=== PATIENT | male | born 1950 | race Caucasian/White ===

== ENCOUNTER → 2018-03-03 | Outpatient (CLI) | payer MEDICARE ==
[~2018-03-03] MED LIST: ISOVUE-370 76% 100ML VIAL (Q9967) As Ordered
== END ==
LOC: M RAD 08:22
DX: R91.1 Solitary pulmonary nodule (principal)
CPT/HCPCS: Q9967

== ENCOUNTER 2018-03-26 06:01 | Day surgery (SDC) | payer MEDICARE ==
[2018-03-26] MEDS: LR 1,000 ML IV ×2 (06:51)
[2018-03-26] MEDS ORDERED: LIDOCAINE 2% INJ 100 MG/5 ML SDV (FOR ANES.) As Ordered ×2 (07:10)
[2018-03-26] MEDS ORDERED: SUCCINYLCHOLINE 100 MG/5 ML SYRINGE (J0330) As Ordered ×2 (07:10)
[2018-03-26] MEDS: EPINEPHrine 1MG/10ML SYRINGE 1.5IN As Ordered ×2 (07:10)
[2018-03-26] MEDS: LIDOCAINE 1% SDV INJ 30 ML VIAL As Ordered ×2 (07:10)
[2018-03-26] MEDS ORDERED: PROPOFOL 200 MG/20 ML VIAL As Ordered ×2 (07:10)
[2018-03-26] MEDS: LIDOCAINE VISCOUS 2% SOLN 15ML UDC As Ordered ×2 (07:10)
[2018-03-26] MEDS: THROMBIN SOLN 20,000 UNITS KIT As Ordered ×2 (07:10)
[2018-03-26] MEDS ORDERED: fentaNYL 100 MCG/2 ML INJECTION (J3010) As Ordered ×2 (07:11)
[2018-03-26] MEDS ORDERED: MIDAZOLAM INJ 2 MG/2 ML VIAL (J2250) As Ordered ×2 (07:11)
[2018-03-26] MEDS: CETACAINE SPRAY 5GM As Ordered ×2 (07:46)
[2018-03-26] MEDS ORDERED: PHENYLephrine HCL 500 MCG/5 ML (100MCG/ML) SYRINGE (J2370) As Ordered ×2 (07:49)
[2018-03-26] MEDS ORDERED: ROCURONIUM BROMIDE 50 MG/5 ML VIAL As Ordered ×2 (07:50)
[2018-03-26] MEDS ORDERED: ONDANSETRON 4MG/2ML VIAL (J2405) As Ordered ×2 (08:09)
[2018-03-26] MEDS ORDERED: LR 1,000 ML IV ×2 (08:45)
[2018-03-26] MEDS ORDERED: ONDANSETRON 4MG/2ML VIAL (J2405) IV ×2 (08:45)
[2018-03-26] MEDS ORDERED: PERCOCET 5MG/325MG TAB PO ×2 (08:45)
[2018-03-26] MEDS ORDERED: fentaNYL 100 MCG/2 ML INJECTION (J3010) IV ×2 (08:45)
== END 2018-03-26 09:45 | disposition home or self-care (01) ==
LOC: M SDC 06:01
DX: R91.1 Solitary pulmonary nodule (principal); N40.0 Benign prostatic hyperplasia without lower urinary tract symptoms; R06.00 Dyspnea, unspecified; J43.2 Centrilobular emphysema; F12.20 Cannabis dependence, uncomplicated; F17.298 Nicotine dependence, other tobacco product, with other nicotine-induced disorders; I10 Essential (primary) hypertension; M12.9 Arthropathy, unspecified; F41.9 Anxiety disorder, unspecified; F43.29 Adjustment disorder with other symptoms; F43.10 Post-traumatic stress disorder, unspecified; Z79.899 Other long term (current) drug therapy
CPT/HCPCS: 31628

== ENCOUNTER → 2018-04-22 | Outpatient (CLI) | payer MEDICARE | LOC: M PLARAD 09:21 | DX: C34.2 Malignant neoplasm of middle lobe, bronchus or lung (principal) | CPT/HCPCS: 78815 ==

== ENCOUNTER → 2018-06-12 | Outpatient (CLI) | payer MEDICARE ==
[2018-06-12 12:25] LABS: HEMATOCRIT 45.2 % (42.0-52.0); MEAN CORPUSCULAR HEMOGLOBIN 31.8 pg (27.0-33.0); MEAN CORPUSCULAR HGB CONC 33.2 g/dl (32.0-36.5); MEAN CORPUSCULAR VOLUME 95.8 fl (80.0-96.0); PLATELET COUNT, AUTOMATED 276 10^3/uL (150-450); RED BLOOD COUNT 4.72 10^6/uL (4.30-6.10); RED CELL DISTRIBUTION WIDTH 13.2 % (11.5-14.5); WHITE BLOOD COUNT 6.6 10^3/uL (4.0-10.0)
[2018-06-12 12:26] LABS: ABG BASE EXCESS -2.4 (-2.0-2.0); ABG DEVICE ROOM AIR; ABG HCO3 20.5 MEQ/L (22.0-26.0); ABG O2 SATURATION 94.8 % (95.0-99.0); ABG PARTIAL PRESSURE CO2 30.4 mmHg (35.0-45.0); ABG STANDARD HCO3 22.4 MEQ/L (22.0-26.0); ABG TOTAL CO2 21.4 MEQ/L (23.0-31.0); ABG pH (ARTERIAL) 7.446 UNITS (7.350-7.450)
[2018-06-12 12:29] LABS: APPEARANCE, URINE CLEAR (CLEAR); BACTERIA, URINE AUTO NEGATIVE (NEGATIVE); BILIRUBIN, URINE AUTO NEGATIVE (NEGATIVE); BLOOD, URINE BLOOD NEGATIVE (NEGATIVE); COLOR, URINE YELLOW (YELLOW); GLUCOSE, URINE (UA) AUTO NEGATIVE (NEGATIVE); KETONE, URINE AUTO NEGATIVE (NEGATIVE); LEUKOCYTE ESTERASE, URINE AUTO NEGATIVE (NEGATIVE); MUCUS, URINE SMALL (NEGATIVE); NITRITE, URINE AUTO NEGATIVE (NEGATIVE); PROTEIN, URINE AUTO NEGATIVE (NEGATIVE); RBC, URINE AUTO 3 /HPF (0-3); SPECIFIC GRAVITY URINE AUTO 1.017 (1.002-1.035); SQUAMOUS EPITHELIAL CELL UR AU 0 /HPF (0-6); UROBILINOGEN, URINE AUTO 0.2 mg/dL (0.0-2.0); WBC, URINE AUTO 1 /HPF (0-3)
[2018-06-12 12:47] LABS: INR 1.02; PROTHROMBIN TIME 13.5 SECONDS (12.1-14.4)
[2018-06-12 12:53] LABS: ANION GAP 6 MEQ/L (8-16); BLOOD UREA NITROGEN 16 MG/DL (7-18); CARBON DIOXIDE LEVEL 28 MEQ/L (21-32); CHLORIDE LEVEL 107 MEQ/L (98-107); CREATININE FOR GFR 0.85 MG/DL (0.70-1.30); GLOMERULAR FILTRATION RATE > 60.0 (>49); GLUCOSE, FASTING 107 MG/DL (70-100); SODIUM LEVEL 141 MEQ/L (136-145)
[2018-06-12 12:54] LABS: POTASSIUM SERUM 5.2 MEQ/L (3.5-5.1)
== END ==
LOC: M ADMPAT 10:31
DX: C34.91 Malignant neoplasm of unspecified part of right bronchus or lung (principal); R00.1 Bradycardia, unspecified
CPT/HCPCS: 71046

== ENCOUNTER → 2018-06-18 | Outpatient (CLI) | payer MEDICARE | LOC: M RAD 13:15 | DX: C34.2 Malignant neoplasm of middle lobe, bronchus or lung (principal); J44.9 Chronic obstructive pulmonary disease, unspecified | CPT/HCPCS: Q9967 ==

== ENCOUNTER → 2018-07-20 | Outpatient (CLI) | payer MEDICARE | LOC: M SMT 09:44 | DX: C34.2 Malignant neoplasm of middle lobe, bronchus or lung (principal) | CPT/HCPCS: 71046 ==

== ENCOUNTER → 2018-08-20 | Outpatient (CLI) | payer MEDICARE | LOC: M SMT 08:57 | DX: Z48.3 Aftercare following surgery for neoplasm (principal); Z90.2 Acquired absence of lung [part of] | CPT/HCPCS: 71046 ==

== ENCOUNTER → 2018-08-25 | Outpatient (REF) | payer MEDICARE ==
[2018-08-25 12:00] LABS: BASO # 0.1 10^3/uL (0.0-0.2); BASO % 0.7 % (0.0-1.0); EOS # 0.4 10^3/uL (0.0-0.50); EOS % 6.1 % (0.0-3.0); HEMATOCRIT 47.2 % (42.0-52.0); HEMOGLOBIN 15.2 g/dl (13.5-17.5); IMMATURE GRANULOCYTE % 0.7 % (0-3.0); LYMPH # 1.4 10^3/uL (1.5-4.5); LYMPH % 20.1 % (24.0-44.0); MEAN CORPUSCULAR HEMOGLOBIN 31.5 pg (27.0-33.0); MEAN CORPUSCULAR HGB CONC 32.2 g/dl (32.0-36.5); MEAN CORPUSCULAR VOLUME 97.7 fl (80.0-96.0); MONO # 0.9 10^3/uL (0.0-0.8); MONO % 12.9 % (0.0-5.0); NEUTROPHILS % 59.5 % (36.0-66.0); PLATELET COUNT, AUTOMATED 214 10^3/uL (150-450); RED BLOOD COUNT 4.83 10^6/uL (4.30-6.10); RED CELL DISTRIBUTION WIDTH 13.4 % (11.5-14.5); WHITE BLOOD COUNT 6.7 10^3/uL (4.0-10.0)
[2018-08-25 12:25] LABS: ERYTHROCYTE SEDIMENTATION RATE 1 mm/hr (0-20)
[2018-08-25 12:55] LABS: C REACTIVE PROTEIN QUANTITATIV 0.45 MG/DL (0.00-0.30); FERRITIN 66 NG/ML (26-388); FOLATE 19.2 NG/ML; IRON (FE) 57 UG/DL (65-175); PERCENT SATURATION 22.2 % (19.7-50.0); RHEUMATOID FACTOR QUANT < 10.0 IU/ML (<15.0); TOTAL IRON BINDING CAPACITY 257 UG/DL (250-450)
[2018-08-28 00:08] LABS: ANA (HEP2) Negative (.)
== END ==
LOC: M SFHCPLAZ 08:22
DX: R53.82 Chronic fatigue, unspecified (principal); M25.551 Pain in right hip; D64.9 Anemia, unspecified
CPT/HCPCS: 82746

== ENCOUNTER → 2018-09-28 | Outpatient (CLI) | payer MEDICARE | LOC: M SMT 09:10 | DX: C34.2 Malignant neoplasm of middle lobe, bronchus or lung (principal) | CPT/HCPCS: 71046 ==

== ENCOUNTER → 2019-03-24 | Outpatient (CLI) | payer MEDICARE ==
[~2019-03-24] MED LIST changes: +ASPI-255 PO; +D-3-50003 PO; +DEXA4TA PO; +DIFL150T PO; +FENT1DIS15 TD; +FLOM0.4C39 OR; +FLOM0.4C39 PO; +FLUC10TA PO; +FOLI1TAB11 PO; +HYDR25TAB; +HYDR25TAB PO; -ISOVUE-370 76% 100ML VIAL (Q9967) As Ordered; +MULTCAP PO; +MULTIVIT PO; +NICO14DI3 TD; +NICO21PAT TD; +ONDA8TAB8 PO; +OXYCO5TA PO; +PAXI20TA OR; +PERC5TAB8 OR; +PRED50TA OR; +PROAAER10; +PROC10TA4 PO; +SAWPOW PO
--- NOTE | 2019-03-25 19:08 | ECGEPIP ---
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
== END ==
LOC: M EKG 09:28
PROVIDERS: ATTEND Family Medicine
DX: I44.4 Left anterior fascicular block (principal); R00.2 Palpitations

== ENCOUNTER → 2019-06-23 | Outpatient (CLI) | payer MEDICARE ==
--- NOTE | 2019-06-23 19:47 | REP ---
Renal sonography: History: Chronic renal disease, stage III. No comparison imaging. Findings: There is no evidence of hydronephrosis. Renal cortical echogenicity pattern is felt to be increased bilaterally consistent with chronic medical renal disease. There is a small simple cyst in the right mid kidney measuring 0.9 cm in greatest diameter. No hydronephrosis is seen on either side. There is no evidence of renal mass. Right kidney measures 10.9 x 5.8 x 3.9 cm. Left renal dimensions are 11.0 x 5.5 x 5.0 cm. Impression: Small right renal cyst. Increased renal cortical echogenicity bilaterally consistent with chronic medical renal disease. No hydronephrosis seen. Electronically Signed by Chao Gaspar MD 06/23/2019 09:14 P
== END ==
LOC: M RAD 12:40
PROVIDERS: ATTEND Internal Medicine Nephrology
DX: N28.1 Cyst of kidney, acquired (principal); N18.3 Chronic kidney disease, stage 3 (moderate)

== ENCOUNTER → 2019-07-22 | Outpatient (CLI) | payer MEDICARE ==
--- NOTE | 2019-07-22 14:31 | REP ---
CT CHEST WITHOUT CONTRAST: HISTORY: Restaging lung cancer. Comparison chest CT study, July 01, 2018. June 18, 2018 prior study is also reviewed. FINDINGS: The patient is status post what appears to have been right middle lobectomy. There are emphysematous changes in the lung mandel bilaterally. There is no evidence of recurrent pulmonary parenchymal mass. No new pulmonary nodule or mass lesion is seen. No pleural or pericardial effusion is seen. Fairly heavy vascular calcification is noted. No hilar or mediastinal mass or adenopathy is observed. There is a healed or healing fracture of the right posterolateral 6th rib. No bony destructive lesion is appreciated. No adrenal lesion is seen. IMPRESSION: Post thoracotomy partial pneumonectomy changes on the right. Advanced COPD emphysema. No CT evidence of metastatic disease or recurrence. Electronically Signed by Chao Gaspar MD 07/22/2019 03:20 P
== END ==
LOC: M RAD 12:23
PROVIDERS: ATTEND Internal Medicine Hematology & Oncology
DX: C34.90 Malignant neoplasm of unspecified part of unspecified bronchus or lung (principal); J43.9 Emphysema, unspecified; Z90.2 Acquired absence of lung [part of]

== ENCOUNTER → 2020-01-20 | Outpatient (CLI) | payer MEDICARE ==
[~2020-01-20] MED LIST changes: +CARV3.12 PO; +ISOVUE-370 76% 100ML VIAL (Q9967) As Ordered ONE; +MIRT1TAB16 PO; +VITA500079 PO
--- NOTE | 2020-01-20 17:06 | REP ---
CT study of the chest with IV contrast: History: Non-small cell lung carcinoma. Comparison CT study July 22, 2019. CT contrast dose: 75 mL of intravenous Isovue [address] findings: Advanced emphysematous changes are again noted in the upper lobes bilaterally. There is a suture line in the right mid lung zone post right middle lobectomy. There is no evidence of pleural or pericardial effusion. Mild bibasilar linear fibrotic changes are seen. The lungs overall are quite hyperinflated. There is no evidence of hilar or mediastinal mass or adenopathy. No adrenal lesion is observed. Visualized upper abdominal structures are unremarkable. No bony destructive lesion is seen. There is a healed rib fracture on the right posterolaterally. Impression: Advanced emphysematous COPD changes. No evidence of significant lung nodule, mass, or adenopathy. Bibasilar linear fibrosis. Post thoracotomy changes on the right. Electronically Signed by Chao Gaspar MD 01/20/2020 05:26 P
== END ==
LOC: M RAD 14:25
PROVIDERS: ATTEND Internal Medicine Hematology & Oncology
DX: C34.90 Malignant neoplasm of unspecified part of unspecified bronchus or lung (principal); J43.9 Emphysema, unspecified; Z90.2 Acquired absence of lung [part of]; J84.10 Pulmonary fibrosis, unspecified
CPT/HCPCS: 71260; Q9967

== ENCOUNTER → 2021-01-30 | Outpatient (CLI) | payer MEDICARE ==
[~2021-01-30] MED LIST changes: +HYDR-3490; +HYDR-3490 PO; -HYDR25TAB; -HYDR25TAB PO; -ISOVUE-370 76% 100ML VIAL (Q9967) As Ordered ONE
--- NOTE | 2021-01-30 16:37 | REP ---
INDICATION: COPD, UNSPECIFIED. There is also history of prior lung carcinoma. COMPARISON: Comparison is made with prior chest CT studies, the most recent of which is dated January 20, 2020. Comparison studies are also reviewed from July 22, 2019, July 01, 2018, June 18, 2018, and a PET-CT study from April 22, 2018.. TECHNIQUE: Helical scanning is acquired. 3 mm axial images are generated. Coronal and sagittal MPR and coronal MIP images are generated. FINDINGS: Digital preliminary dividend clerk radiograph demonstrates hyperinflation consistent with COPD. There are advanced emphysematous changes throughout the upper lobes bilaterally. A post thoracotomy partial pneumonectomy suture line is visible along the course of the minor fissure on the right consistent with previous right middle lobectomy. No pulmonary mass or significant pulmonary nodule is seen. There is some inspissated endobronchial secretions in the left lower lobe consistent with bronchitis changes. No other endobronchial lesion is seen. No pleural or pericardial effusion is seen. No hilar or mediastinal mass or adenopathy has developed. There are vascular calcifications noted. No adrenal mass is seen. IMPRESSION: No mass or adenopathy seen. Advanced emphysematous changes. Post thoracotomy partial pneumonectomy changes again noted on the right. There are some retained endobronchial secretions in the left lower lobe. <Electronically signed by Juice Gaspar > 01/30/21 [id number]
== END ==
LOC: M RAD 13:01
PROVIDERS: ATTEND Internal Medicine Pulmonary Disease
DX: J44.9 Chronic obstructive pulmonary disease, unspecified (principal)

== ENCOUNTER → 2021-05-31 | Outpatient (REF) | payer MEDICARE ==
[2021-05-31 17:45] LABS: APPEARANCE, URINE CLEAR (CLEAR); BACTERIA, URINE AUTO NEGATIVE (NEGATIVE); BILIRUBIN, URINE AUTO NEGATIVE (NEGATIVE); BLOOD, URINE BLOOD NEGATIVE (NEGATIVE); COLOR, URINE YELLOW (YELLOW); GLUCOSE, URINE (UA) AUTO NEGATIVE (NEGATIVE); KETONE, URINE AUTO NEGATIVE (NEGATIVE); LEUKOCYTE ESTERASE, URINE AUTO NEGATIVE (NEGATIVE); MUCUS, URINE SMALL (NEGATIVE); NITRITE, URINE AUTO NEGATIVE (NEGATIVE); PROTEIN, URINE AUTO NEGATIVE (NEGATIVE); RBC, URINE AUTO 1 /HPF (0-3); SPECIFIC GRAVITY URINE AUTO 1.013 (1.002-1.035); SQUAMOUS EPITHELIAL CELL UR AU 0 /HPF (0-6); UROBILINOGEN, URINE AUTO 0.2 mg/dL (0.0-2.0); WBC, URINE AUTO 0 /HPF (0-3)
== END ==
LOC: M SMT 16:56
PROVIDERS: ATTEND Nurse Practitioner Family
DX: N40.1 Benign prostatic hyperplasia with lower urinary tract symptoms (principal)

== ENCOUNTER → 2021-06-13 | Outpatient (CLI) | payer MEDICARE ==
--- NOTE | 2021-06-13 17:14 | REPPI ---
INDICATION: ELEVATED PSA. COMPARISON: None. TECHNIQUE: Transrectal prostate ultrasound performed, with ultrasound guidance provided for Dr. Sinha who performed ultrasound-guided biopsy. FINDINGS: Prostate measures 5.1 x 2.9 x 5.3 cm, total volume 41.3 mL. Scattered cysts and calcifications are present with diffuse heterogeneous echotexture. No focal peripheral zone mass is seen. Seminal vesicles are symmetrical. IMPRESSION: Prostate ultrasound as above, ultrasound guidance was provided for Dr. Sinha who performed ultrasound-guided biopsy of the prostate. <Electronically signed by Jorge L Uribe > 06/13/21 [id number]
== END ==
LOC: M PLAIMG 14:49
PROVIDERS: ATTEND Urology
DX: R97.20 Elevated prostate specific antigen [PSA] (principal)

== ENCOUNTER → 2022-01-17 | Outpatient (CLI) | payer MEDICARE ==
[~2022-01-17] MED LIST changes: -PROC10TA4 PO; +PROC10TA5 PO
== END ==
LOC: M RAD 10:48
PROVIDERS: ATTEND Nurse Practitioner Adult Health
DX: R22.1 Localized swelling, mass and lump, neck (principal)

== ENCOUNTER → 2022-01-31 | Outpatient (CLI) | payer MEDICARE | LOC: M PLAIMG 11:53 | PROVIDERS: ATTEND Internal Medicine Pulmonary Disease | DX: J44.9 Chronic obstructive pulmonary disease, unspecified (principal); Z85.118 Personal history of other malignant neoplasm of bronchus and lung ==

== ENCOUNTER → 2022-09-05 | Outpatient (CLI) | payer MEDICARE | LOC: M WUC 13:51 | PROVIDERS: ATTEND Physician Assistant | DX: M47.26 Other spondylosis with radiculopathy, lumbar region (principal) ==

== ENCOUNTER → 2023-01-12 | Outpatient (REF) | payer OTHER | LOC: M LAB REF 13:58 | PROVIDERS: ATTEND Physician Assistant | DX: R19.7 Diarrhea, unspecified (principal) ==

== ENCOUNTER → 2023-01-13 | Outpatient (CLI) | payer OTHER ==
[2023-01-13 13:57] LABS: BASO % 0.4 % (0.0-1.0); EOS # 0.1 10^3/uL (0.0-0.5); EOS % 0.7 % (0.0-3.0); HEMATOCRIT 46.7 % (42.0-52.0); HEMOGLOBIN 15.6 g/dl (13.5-17.5); LYMPH # 0.9 10^3/uL (1.5-5.0); LYMPH % 12.8 % (24.0-44.0); MEAN CORPUSCULAR HEMOGLOBIN 31.8 pg (27.0-33.0); MEAN CORPUSCULAR HGB CONC 33.4 g/dl (32.0-36.5); MEAN CORPUSCULAR VOLUME 95.3 fl (80.0-96.0); MONO # 0.9 10^3/uL (0.0-0.8); MONO % 12.4 % (2.0-8.0); NEUTROPHILS # 5.3 10^3/uL (1.5-8.5); NEUTROPHILS % 72.7 % (36.0-66.0); PLATELET COUNT, AUTOMATED 231 10^3/uL (150-450); WHITE BLOOD COUNT 7.3 10^3/uL (4.0-10.0)
[2023-01-13 14:34] LABS: LIPASE 16 U/L (12-53)
[2023-01-13 16:09] LABS: ALBUMIN 3.5 G/DL (3.2-5.2); ALKALINE PHOSPHATASE 74 U/L (46-116); ALT/SGPT 70 U/L (7.0-40); AST/SGOT 28 U/L (<34); BILIRUBIN,DIRECT 0.3 MG/DL (<0.4); BILIRUBIN,TOTAL 0.9 MG/DL (0.3-1.2); BLOOD UREA NITROGEN 12 MG/DL (9-23); CALCIUM LEVEL 8.6 MG/DL (8.3-10.6); CARBON DIOXIDE LEVEL 31 MMOL/L (20-31); CHLORIDE LEVEL 102 MMOL/L (98-107); GLOMERULAR FILTRATION RATE > 60.0 (>42); GLUCOSE, FASTING 99 MG/DL (74-106); POTASSIUM SERUM 3.8 MMOL/L (3.5-5.1); SODIUM LEVEL 140 MMOL/L (136-145); TOTAL PROTEIN 6.2 G/DL (5.7-8.2)
== END ==
LOC: M LAB 13:26
PROVIDERS: ATTEND Physician Assistant
DX: R19.7 Diarrhea, unspecified (principal)

== ENCOUNTER → 2023-02-14 | Outpatient (CLI) | payer OTHER | LOC: M PLAIMG 12:53 | PROVIDERS: ATTEND Internal Medicine Pulmonary Disease | DX: Z85.118 Personal history of other malignant neoplasm of bronchus and lung (principal); J43.1 Panlobular emphysema; Z90.2 Acquired absence of lung [part of]; J98.11 Atelectasis; I25.10 Atherosclerotic heart disease of native coronary artery without angina pectoris ==

== ENCOUNTER → 2023-03-25 | Outpatient (CLI) | payer OTHER ==
[~2023-03-25] MED LIST changes: +ALBU8.5H INH; +ALPR0.5T3 PO; +ARNU1INH INH; +ERGO500029 PO; +FLUT50SP17; +LOSA50TA28 PO; +MIRT-11 PO; +TAMS1CAP17 PO; +TREL1AER INH; +VITMTA PO
== END ==
LOC: M PLAIMG 10:47
PROVIDERS: ATTEND Physician Assistant
DX: M51.36 Other intervertebral disc degeneration, lumbar region (principal); N28.1 Cyst of kidney, acquired; M47.26 Other spondylosis with radiculopathy, lumbar region

== ENCOUNTER 2023-04-03 10:32 | Day surgery (SDC) | payer OTHER ==
[~2023-04-03] VITALS: Ht 182.9 cm; Wt 60.2 kg
[~2023-04-03 10:32] MED LIST changes: +NS 1,000 ML IV ONE
[2023-04-03] MEDS ORDERED: propofoL 200 MG/20 ML VIAL As Ordered ONE (12:44)
[2023-04-03] MEDS ORDERED: LIDOCAINE 2% 100MG/5ML SDV (FOR ANES.) As Ordered ONE (12:44)
[2023-04-03 13:15] VITALS: BP 152/90
== END 2023-04-03 13:28 | disposition home or self-care (01) ==
LOC: M OPP 10:32
PROVIDERS: ATTEND Surgery
DX: K57.30 Diverticulosis of large intestine without perforation or abscess without bleeding (principal); K64.2 Third degree hemorrhoids; K59.00 Constipation, unspecified; Z79.51 Long term (current) use of inhaled steroids; Z79.899 Other long term (current) drug therapy; Z87.891 Personal history of nicotine dependence

== ENCOUNTER → 2023-04-16 | Outpatient (CLI) | payer OTHER ==
[~2023-04-16] MED LIST changes: -NS 1,000 ML IV ONE
== END ==
LOC: M RAD 06:53
PROVIDERS: ATTEND Physician Assistant
DX: N28.1 Cyst of kidney, acquired (principal)

== ENCOUNTER → 2023-05-08 | Outpatient (CLI) | payer OTHER ==
[2023-05-08 11:17] LABS: BASO # 0.1 10^3/uL (0.0-0.2); BASO % 0.7 % (0.0-1.0); EOS # 0.3 10^3/uL (0.0-0.5); EOS % 2.1 % (0.0-3.0); HEMATOCRIT 50.9 % (42.0-52.0); LYMPH # 1.4 10^3/uL (1.5-5.0); LYMPH % 11.1 % (24.0-44.0); MEAN CORPUSCULAR HEMOGLOBIN 31.7 pg (27.0-33.0); MEAN CORPUSCULAR HGB CONC 32.6 g/dl (32.0-36.5); MEAN CORPUSCULAR VOLUME 97.1 fl (80.0-96.0); MONO # 0.9 10^3/uL (0.0-0.8); MONO % 6.9 % (2.0-8.0); NEUTROPHILS # 9.6 10^3/uL (1.5-8.5); NEUTROPHILS % 78.3 % (36.0-66.0); PLATELET COUNT, AUTOMATED 219 10^3/uL (150-450); RED BLOOD COUNT 5.24 10^6/uL (4.30-6.10); WHITE BLOOD COUNT 12.3 10^3/uL (4.0-10.0)
[2023-05-08 11:36] LABS: ALBUMIN 4.2 G/DL (3.2-5.2); ALKALINE PHOSPHATASE 89 U/L (46-116); ALT/SGPT 21 U/L (7.0-40); AST/SGOT 11 U/L (<34); BILIRUBIN,TOTAL 1.1 MG/DL (0.3-1.2); BLOOD UREA NITROGEN 24 MG/DL (9-23); CALCIUM LEVEL 10.1 MG/DL (8.3-10.6); CARBON DIOXIDE LEVEL 28 MMOL/L (20-31); CHLORIDE LEVEL 107 MMOL/L (98-107); CHOLESTEROL LEVEL 150 MG/DL (<200); CHOLESTEROL RISK RATIO 2.45 (<5); GLOMERULAR FILTRATION RATE > 60.0 (>42); GLUCOSE, FASTING 126 MG/DL (74-106); HDL CHOLESTEROL 61.1 MG/DL (>40); LDL CHOLESTEROL 75.7 MG/DL (<100); NON-HDL-C 88.9 MG/DL; SODIUM LEVEL 139 MMOL/L (136-145); TOTAL PROTEIN 6.9 G/DL (5.7-8.2); TRIGLYCERIDES LEVEL 66 MG/DL (<150)
[2023-05-08 11:45] LABS: HEMOGLOBIN 16.6 g/dl (13.5-17.5)
[2023-05-08 11:58] LABS: HEMOGLOBIN A1c 5.8 % (4.0-6.0)
== END ==
LOC: M LAB 10:22
PROVIDERS: ATTEND Physician Assistant
DX: N40.0 Benign prostatic hyperplasia without lower urinary tract symptoms (principal); I10 Essential (primary) hypertension
CPT/HCPCS: 36415; 80053; 80061; 83036; 85025; G0103

== ENCOUNTER → 2023-06-20 | Outpatient (CLI) | payer OTHER ==
[~2023-06-20] MED LIST changes: +GASTROGRAFIN SOLUTION 30ML As Ordered ONE; +ISOVUE-370 76% 100ML VIAL As Ordered ONE
== END ==
LOC: M RAD 16:19
PROVIDERS: ATTEND Family Medicine
DX: J44.9 Chronic obstructive pulmonary disease, unspecified (principal); K31.A11 Gastric intestinal metaplasia without dysplasia, involving the antrum; N40.0 Benign prostatic hyperplasia without lower urinary tract symptoms; R68.81 Early satiety
CPT/HCPCS: 71260; 74177; Q9963; Q9967

== ENCOUNTER 2023-09-19 12:10 | Day surgery (SDC) | payer OTHER ==
[~2023-09-19] VITALS: Ht 182.9 cm; Wt 66.3 kg
[~2023-09-19 12:10] MED LIST changes: +AMLO1TAB25 PO; -GASTROGRAFIN SOLUTION 30ML As Ordered ONE; -ISOVUE-370 76% 100ML VIAL As Ordered ONE; +NS 1,000 ML IV ONE; +OMEP40CA4 PO; +SERT-141 PO; +SUCR1TA PO
[2023-09-19] MEDS ORDERED: propofoL 200 MG/20 ML VIAL As Ordered ONE (13:55)
[2023-09-19] MEDS ORDERED: LIDOCAINE 2% 100MG/5ML SDV (FOR ANES.) As Ordered ONE (13:55)
[2023-09-19 14:13] VITALS: TEMP 97.8
[2023-09-19 14:33] VITALS: BP 115/69; O2SAT 95
== END 2023-09-19 15:10 | disposition home or self-care (01) ==
LOC: M OPP 12:10
PROVIDERS: ATTEND Internal Medicine Gastroenterology
DX: R13.10 Dysphagia, unspecified (principal); K44.9 Diaphragmatic hernia without obstruction or gangrene; K29.40 Chronic atrophic gastritis without bleeding; R63.4 Abnormal weight loss

== ENCOUNTER → 2023-10-13 | Outpatient (CLI) | payer OTHER ==
[~2023-10-13] MED LIST changes: -FLUT50SP17; +FLUTISP; -NS 1,000 ML IV ONE
[2023-10-15 23:07] LABS: PSA % FREE 27.4 % (.); PSA FREE 1.45 ng/mL; PSA TOTAL 5.3 ng/mL (0.0-4.0)
== END ==
LOC: M LAB 11:28
PROVIDERS: ATTEND Urology
DX: N40.0 Benign prostatic hyperplasia without lower urinary tract symptoms (principal); Z12.5 Encounter for screening for malignant neoplasm of prostate; R97.20 Elevated prostate specific antigen [PSA]

== ENCOUNTER → 2023-10-14 | Outpatient (REF) | payer OTHER ==
[2023-10-14 14:13] LABS: APPEARANCE, URINE CLEAR (CLEAR); BACTERIA, URINE AUTO NEGATIVE (NEGATIVE); BILIRUBIN, URINE AUTO NEGATIVE (NEGATIVE); BLOOD, URINE BLOOD NEGATIVE (NEGATIVE); COLOR, URINE YELLOW (YELLOW); GLUCOSE, URINE (UA) AUTO NEGATIVE (NEGATIVE); KETONE, URINE AUTO NEGATIVE (NEGATIVE); LEUKOCYTE ESTERASE, URINE AUTO NEGATIVE (NEGATIVE); MUCUS, URINE SMALL (NEGATIVE); NITRITE, URINE AUTO NEGATIVE (NEGATIVE); PROTEIN, URINE AUTO NEGATIVE (NEGATIVE); RBC, URINE AUTO 0 /HPF (0-3); SPECIFIC GRAVITY URINE AUTO 1.017 (1.002-1.035); SQUAMOUS EPITHELIAL CELL UR AU 0 /HPF (0-6); UROBILINOGEN, URINE AUTO 0.2 mg/dL (0.0-2.0); WBC, URINE AUTO 0 /HPF (0-3)
== END ==
LOC: M LABSMT 09:31
PROVIDERS: ATTEND Urology
DX: R97.20 Elevated prostate specific antigen [PSA] (principal)

== ENCOUNTER → 2023-10-16 | Outpatient (CLI) | payer OTHER ==
[~2023-10-16] MED LIST changes: +BARIUM SULFATE 700 MG TABLET (E-Z-DISK) As Ordered ONE; +E-Z-PAQUE 96% w/w SUSP 176GM BTL As Ordered ONE; +VARIBAR NECTAR 40% w/v 240ML SUSP BTL As Ordered ONE; +VARIBAR PUDDING 40% w/v 230ML TUBE As Ordered ONE
== END ==
LOC: M RAD 11:56
PROVIDERS: ATTEND Internal Medicine Gastroenterology
DX: R13.10 Dysphagia, unspecified (principal)

== ENCOUNTER → 2024-03-18 | Outpatient (CLI) | payer OTHER ==
[~2024-03-18] MED LIST changes: -BARIUM SULFATE 700 MG TABLET (E-Z-DISK) As Ordered ONE; -E-Z-PAQUE 96% w/w SUSP 176GM BTL As Ordered ONE; -VARIBAR NECTAR 40% w/v 240ML SUSP BTL As Ordered ONE; -VARIBAR PUDDING 40% w/v 230ML TUBE As Ordered ONE
== END ==
LOC: M RAD 11:33
PROVIDERS: ATTEND Internal Medicine Pulmonary Disease
DX: R06.02 Shortness of breath (principal); J43.9 Emphysema, unspecified; J47.9 Bronchiectasis, uncomplicated; R91.8 Other nonspecific abnormal finding of lung field; I70.0 Atherosclerosis of aorta; I25.10 Atherosclerotic heart disease of native coronary artery without angina pectoris

== ENCOUNTER → 2024-03-23 | Outpatient (CLI) | payer OTHER | LOC: M CARPUL 13:24 | PROVIDERS: ATTEND Internal Medicine Pulmonary Disease | DX: J44.9 Chronic obstructive pulmonary disease, unspecified (principal) ==

== ENCOUNTER → 2024-04-29 | Outpatient (REF) | payer OTHER, MEDICARE ==
[~2024-04-29] MED LIST changes: +FLUT1BLS8; +LAXA15TA PO; +ONDA-284 PO; -ONDA8TAB8 PO; +QUET100T2; +[UNRECOGNIZED DRUG - CODE] PO
== END ==
LOC: M LAB REF 14:18
PROVIDERS: ATTEND Physician Assistant
DX: I49.3 Ventricular premature depolarization (principal)

== ENCOUNTER → 2024-05-17 | Outpatient (CLI) | payer OTHER | LOC: M PLARAD 14:03 | PROVIDERS: ATTEND Internal Medicine Hematology & Oncology | DX: C34.2 Malignant neoplasm of middle lobe, bronchus or lung (principal) | CPT/HCPCS: 78815; A9552 ==

== ENCOUNTER → 2024-09-01 | Outpatient (CLI) | payer OTHER ==
[~2024-09-01] MED LIST changes: +DILT180C70; +ISOVUE-370 76% 100ML VIAL As Ordered ONE
== END ==
LOC: M RAD 13:33
PROVIDERS: ATTEND Internal Medicine Hematology & Oncology
DX: C34.90 Malignant neoplasm of unspecified part of unspecified bronchus or lung (principal); J43.9 Emphysema, unspecified
CPT/HCPCS: 71260; Q9967

== ENCOUNTER 2024-11-12 14:33 | Emergency (ER) | payer MEDICARE, OTHER ==
[~2024-11-12] VITALS: Ht 182.9 cm; Wt 62.8 kg
[~2024-11-12 14:33] MED LIST changes: +AMLO1TAB24; -ISOVUE-370 76% 100ML VIAL As Ordered ONE; +OMEP40CA5
[2024-11-12 14:38] VITALS: BP 122/57; TEMP 98.1; O2SAT 94
[2024-11-12 17:07] LABS: BASO % 0.3 % (0.0-1.0); EOS % 0.1 % (0.0-3.0); HEMOGLOBIN 15.8 g/dl (13.5-17.5); LYMPH # 0.7 10^3/uL (1.5-5.0); LYMPH % 4.8 % (24.0-44.0); MEAN CORPUSCULAR HEMOGLOBIN 30.3 pg (27.0-33.0); MEAN CORPUSCULAR HGB CONC 32.9 g/dl (32.0-36.5); MONO # 0.9 10^3/uL (0.0-0.8); MONO % 6.1 % (2.0-8.0); NEUTROPHILS # 11.7 10^3/uL (1.5-8.5); NEUTROPHILS % 84.8 % (36.0-66.0); PLATELET COUNT, AUTOMATED 209 10^3/uL (150-450); RED BLOOD COUNT 5.22 10^6/uL (4.30-6.10); WHITE BLOOD COUNT 13.8 10^3/uL (4.0-10.0)
[2024-11-12 17:14] LABS: INR 1.07; PARTIAL THROMBOPLASTIN TIME 30.9 SECONDS (24.8-34.2); PROTHROMBIN TIME 14.3 SECONDS (12.5-14.5)
[2024-11-12 17:31] LABS: BLOOD UREA NITROGEN 30 MG/DL (9-23); CALCIUM LEVEL 9.1 MG/DL (8.3-10.6); CARBON DIOXIDE LEVEL 28 MMOL/L (20-31); CHLORIDE LEVEL 104 MMOL/L (98-107); CREATININE FOR GFR 1.12 MG/DL (0.70-1.30); GLOMERULAR FILTRATION RATE > 60.0 (>42); GLUCOSE, FASTING 101 MG/DL (74-106); POTASSIUM SERUM 4.7 MMOL/L (3.5-5.1); SODIUM LEVEL 141 MMOL/L (136-145)
[2024-11-12] MEDS: IPRATROPIUM 0.5MG/ALBUTEROL 2.5MG INH SOL UD 3ML (DUONEB) NEB ONE (19:23)
[2024-11-12] MEDS ORDERED: NEBU1EAC80 MC (19:53)
[2024-11-12] MEDS ORDERED: DOXY100C82 PO (19:56)
[2024-11-12] MEDS ORDERED: PRED20TA PO (19:56)
[2024-11-12] MEDS ORDERED: IPRA0.00 NEB (19:56)
[2024-11-12] MEDS: DOXYCYCLINE HYCLATE 100MG TABLET PO ONE (20:00)
[2024-11-12] MEDS: methylPREDNISolone 125MG 2ML VIAL IM ONE (20:00)
== END 2024-11-12 21:17 | disposition home or self-care (01) ==
LOC: M ED 14:33
DX: J09.X1 Influenza due to identified novel influenza A virus with pneumonia (principal); Z85.118 Personal history of other malignant neoplasm of bronchus and lung; J44.9 Chronic obstructive pulmonary disease, unspecified; J43.9 Emphysema, unspecified; Z79.899 Other long term (current) drug therapy
CPT/HCPCS: 71046; 80048; 85025; 85610; 85730; 87040; 87486; 87581; 87633; 87798; 93005; 94640; 96372; 99284; J2919

== ENCOUNTER 2024-11-16 14:10 | Emergency (ER) | payer MEDICARE ==
[~2024-11-16] VITALS: Ht 182.9 cm; Wt 64.6 kg
[~2024-11-16 14:10] MED LIST changes: +DOXY100C82 PO; +IPRA0.00 NEB; +NEBU1EAC80 MC; +PRED20TA PO
[2024-11-16] MEDS ORDERED: CEFU1TAB22 (14:23)
[2024-11-16 15:11] LABS: VENOUS BASE EXCESS -2.2 (-2.0-2.0); VENOUS HCO3 23.4 MMOL/L (23.0-27.0); VENOUS PARTIAL PRESSURE O2 52.3 mmHg (30.0-50.0); VENOUS PH 7.353 UNITS (7.330-7.430); VENOUS STANDARD HCO3 22.3 MMOL/L; VENOUS TOTAL CO2 24.7 MMOL/L (24.0-28.0)
[2024-11-16 15:15] LABS: BASO # 0.1 10^3/uL (0.0-0.2); BASO % 0.3 % (0.0-1.0); EOS % 0.1 % (0.0-3.0); HEMATOCRIT 46.2 % (42.0-52.0); LYMPH # 0.2 10^3/uL (1.5-5.0); LYMPH % 1.1 % (24.0-44.0); MEAN CORPUSCULAR HEMOGLOBIN 30.4 pg (27.0-33.0); MEAN CORPUSCULAR HGB CONC 32.5 g/dl (32.0-36.5); MEAN CORPUSCULAR VOLUME 93.7 fl (80.0-96.0); MONO # 0.4 10^3/uL (0.0-0.8); MONO % 2.3 % (2.0-8.0); NEUTROPHILS # 16.2 10^3/uL (1.5-8.5); NEUTROPHILS % 92.5 % (36.0-66.0); PLATELET COUNT, AUTOMATED 324 10^3/uL (150-450); RED BLOOD COUNT 4.93 10^6/uL (4.30-6.10); WHITE BLOOD COUNT 17.5 10^3/uL (4.0-10.0)
[2024-11-16] MEDS: IPRATROPIUM 0.5MG/ALBUTEROL 2.5MG INH SOL UD 3ML (DUONEB) NEB PRN (15:22)
[2024-11-16 15:46] LABS: CALCIUM LEVEL 9.3 MG/DL (8.3-10.6); CREATININE FOR GFR 1.39 MG/DL (0.70-1.30); GLOMERULAR FILTRATION RATE 53.2 (>42); POTASSIUM SERUM 5.1 MMOL/L (3.5-5.1)
[2024-11-16 17:23] VITALS: O2SAT 86
[2024-11-16 17:56] VITALS: BP 116/64; TEMP 98.3; O2SAT 93
== END 2024-11-16 18:03 | disposition left against medical advice (07) ==
LOC: M ED 14:10
DX: J18.9 Pneumonia, unspecified organism (principal); J44.9 Chronic obstructive pulmonary disease, unspecified; Z53.9 Procedure and treatment not carried out, unspecified reason; I25.10 Atherosclerotic heart disease of native coronary artery without angina pectoris; I10 Essential (primary) hypertension; Z86.19 Personal history of other infectious and parasitic diseases; Z85.118 Personal history of other malignant neoplasm of bronchus and lung; Z90.2 Acquired absence of lung [part of]; Z92.21 Personal history of antineoplastic chemotherapy; Z87.891 Personal history of nicotine dependence

== ENCOUNTER → 2024-12-13 | Outpatient (CLI) | payer MEDICARE ==
[~2024-12-13] MED LIST changes: +CEFU1TAB22
== END ==
LOC: M PLARAD 09:06
PROVIDERS: ATTEND Physician Assistant
DX: R93.5 Abnormal findings on diagnostic imaging of other abdominal regions, including retroperitoneum (principal)
CPT/HCPCS: 78815; A9552

== ENCOUNTER → 2025-01-24 | Outpatient (CLI) | payer MEDICARE ==
[~2025-01-24] MED LIST changes: +DOXY-442 PO; -DOXY100C82 PO
== END ==
LOC: M PLAIMG 11:14
PROVIDERS: ATTEND Internal Medicine Critical Care Medicine
DX: J44.9 Chronic obstructive pulmonary disease, unspecified (principal); J43.2 Centrilobular emphysema; I25.10 Atherosclerotic heart disease of native coronary artery without angina pectoris; Z90.2 Acquired absence of lung [part of]; R91.8 Other nonspecific abnormal finding of lung field

== ENCOUNTER → 2025-02-28 | Outpatient (CLI) | payer MEDICARE | LOC: M PLARAD 11:07 | PROVIDERS: ATTEND Internal Medicine Pulmonary Disease | DX: R91.8 Other nonspecific abnormal finding of lung field (principal) | CPT/HCPCS: 78815; A9552 ==

== ENCOUNTER → 2025-06-17 | Outpatient (CLI) | payer MEDICARE ==
[~2025-06-17] MED LIST changes: -FLOM0.4C39 PO; +PROHANCE 279.3MG/ML 5ML VIAL ONE; +TAMS-18 PO
== END ==
LOC: M PLAIMG 14:15
PROVIDERS: ATTEND Urology
DX: R97.20 Elevated prostate specific antigen [PSA] (principal); M25.462 Effusion, left knee; N43.3 Hydrocele, unspecified; N40.0 Benign prostatic hyperplasia without lower urinary tract symptoms
CPT/HCPCS: 72197; A9576

== ENCOUNTER → 2025-08-12 | Outpatient (CLI) | payer MEDICARE ==
[~2025-08-12] MED LIST changes: +ISOVUE-370 76% 100 ML VIAL As Ordered ONE; -PROHANCE 279.3MG/ML 5ML VIAL ONE
== END ==
LOC: M RAD 08:54
PROVIDERS: ATTEND Student in an Organized Health Care Education/Training Program
DX: C34.2 Malignant neoplasm of middle lobe, bronchus or lung (principal); K59.00 Constipation, unspecified
CPT/HCPCS: 71260; 74177; Q9967